=== PATIENT | male | born 1995 | race African-American/Black ===

== ENCOUNTER 2017-07-03 13:34 | Emergency (ER) | payer OTHER ==
[~2017-07-03] VITALS: Ht 193 cm; Wt 84.0 kg
[2017-07-03 14:21] VITALS: BP 117/66; PULSE 53; RESP 18; TEMP 98.5; O2SAT 100
[2017-07-03 16:23] VITALS: BP 117/65; PULSE 64; RESP 19; O2SAT 100
--- NOTE | 2017-07-03 16:24 | RADRPT ---
EXAM DATE/TIME: 07/03/2017 16:10 [place] COMPARISON: No previous studies available for comparison. INDICATIONS : Chest pain and coughing up blood. MEDICAL HISTORY : Smoker. SURGICAL HISTORY : None. ENCOUNTER: Initial ACUITY: 2 days PAIN SCORE: 5/10 LOCATION: Bilateral chest FINDINGS: PA and lateral views of the chest demonstrate the lungs to be symmetrically aerated without evidence of mass, infiltrate or effusion. The cardiomediastinal contours are unremarkable. Osseous structure s are intact. CONCLUSION: No acute disease. Vikas De La Rosa MD FACR on July 03, 2017 at 16:21 Board Certified Radiologist. This report was verified electronically.
[2017-07-03] MEDS ORDERED: NAPR500T2 PO (16:31)
--- NOTE | 2017-07-03 16:31 | PD ---
HPI Chief Complaint: Respiratory Symptoms Time Seen by Provider: 15:53 Travel History International Travel<30 days: No Contact w/Intl Traveler<30days: No Traveled to known affect area: No History of Present Illness HPI This is a 22-year-old male who presents to the emergency department with having some trouble breathing after a relatively mild workout. He felt like he had some chest discomfort when he takes a deep breath and he can inhale fully, intermittent, resolved. He denies any current chest pain. He says he feels similar to when he had pneumonia in the past. He denies any recent long trips or family history of blood clot. He has no familial history of heart disease. He is otherwise healthy. [facility] Past Medical History Medical History: Denies Significant Hx Social History Tobacco Use: No Substance Use: Yes (smokes marijuana) Allergies-Medications (Allergen,Severity, Reaction): Coded Allergies: No Known Allergies (Unverified , 07/03/17) Review of Systems Except as stated in HPI: all other systems reviewed are Neg Physical Exam Narrative GENERAL:Well appearing, no acute distress SKIN: Focused skin assessment warm and dry. HEAD: Atraumatic. Normocephalic. EYES: Pupils equal and round. No injection or drainage. ENT: Moist mucous membranes NECK: Trachea midline. CARDIOVASCULAR: Regular rate and rhythm. No murmur appreciated. RESPIRATORY: Clear to auscultation. Breath sounds equal bilaterally. GASTROINTESTINAL: Abdomen soft, non-tender, nondistended. MUSCULOSKELETAL: No obvious deformities. NEUROLOGICAL: Awake and alert. No obvious cranial nerve deficits. Moving all extremities. PSYCHIATRIC: Appropriate mood and affect; insight and judgment normal. Data Data Last Documented VS Vital Signs Date Time Temp Pulse Resp B/P (MAP) Pulse Ox O2 Delivery O2 Flow Rate FiO2 07/03/17 16:23 64 19 117/65 (82) 100 Room Air 07/03/17 14:21 98.5 Orders Orders Electrocardiogram (07/03/17 ) Chest, Pa & Lat (07/03/17 ) [facility] Medical Decision Making Medical Screen Exam Complete: Yes Emergency Medical Condition: Yes Interpretation(s) EKG:nsr, incomplete right bundle branch block, benign early repolarization Chest x-ray: No acute process Differential Diagnosis Pulmonary embolism, pneumonia, pleurisy, pleural effusion, acute coronary syndrome Narrative Course This is a 22-year-old male who presents to the emergency department with some blood from his nose yesterday and some pleuritic chest discomfort today. He has no risk factors for pulmonary embolism and is PERC negative. EKG demonstrates benign early repolarization. He has no risk factors for heart disease. He is very well-appearing. I do not think this reflects a myocardial infarction. I do not think there is an emergent etiology of his symptoms and I suspect he has some pleurisy. I think patient can be discharged home on anti- inflammatories. Diagnosis Primary Impression: Pleurisy Patient Instructions: General Instructions Additional Instructions: If you develop severe chest pain, shortness of breath, sweating, lightheadedness , dizziness or difficulty breathing return to the emergency department immediately. Followup with your primary care physician in 2-3 days if your symptoms are not resolved. Med/Other Pt SpecificInfo: Prescription(s) given Scripts Naproxen (Naproxen) 500 Mg Tab 500 MG PO BID Y for PAIN SCALE 4 TO 10, #10 TAB 0 Refills Prov: Jenni Olmedo MD 07/03/17 Disposition: 01 DISCHARGE HOME Condition: Stable Jenni Olmedo MD July 03, 2017 16:31
--- NOTE | 2017-07-04 09:53 | EKG ---
Date Performed: 07/03/2017 Time Performed: 14:27:44 PTAGE: 22 years EKG: SINUS BRADYCARDIA WITH SINUS ARRHYTHMIA POSSIBLE RIGHT VENTRICULAR CONDUCTION DELAY VOLTAGE CRITERIA FOR LVH ABNORMAL ECG NO PREVIOUS TRACING DOCTOR: Lin Burgos Interpretating Date/Time 07/04/2017 09:52:45
== END 2017-07-03 16:49 | disposition home or self-care (01) ==
LOC: NEPC 13:34
DX: R09.1 Pleurisy (principal); F12.90 Cannabis use, unspecified, uncomplicated
CPT/HCPCS: 71046; 93005; 99284